=== PATIENT | male | born 2000 | race Caucasian/White ===

== ENCOUNTER 2021-10-07 19:17 | Emergency (ER) | payer OTHER ==
[2021-10-07] MEDS ORDERED: KETOROLAC 60 MG/2 ML VIAL IM STA (19:52)
[2021-10-07] MEDS ORDERED: HYDROmorphone 1 MG/ML CARPUJECT IM STA (19:52)
--- NOTE | 2021-10-07 19:54 | ED Physician Documentation ---
History of Present Illness - Stated complaint Stated Complaint: SHAKING/BACK INJ - Chief complaint Chief Complaint: Back Pain - Additonal information Additional information: 21-year-old male presents emergency department for evaluation of acute onset low back pain. He reports that he was working out and doing lifts of approximately 200 pounds when he felt a sharp sharp pain in his back. Since then he has had tenderness in the low back and some difficulty walking. No saddle anesthesia, no loss of bowel or bladder function. No history of injection drug use cancer or diabetes. He has not taken anything for pain. Denies any previous history of low back pain. Review of Systems Constitutional: denies: Fever, Chills Nose: reports: Reviewed and negative Cardiac: reports: Reviewed and negative Respiratory: reports: Reviewed and negative Skin: reports: Reviewed and negative Musculoskeletal: reports: Back pain. denies: Neck pain, Extremity pain Neurologic: reports: Reviewed and negative PD PAST MEDICAL HISTORY - Present Medications Home Medications: Ambulatory Orders Medication Instructions Recorded Confirmed Ibuprofen [Motrin] 600 mg PO Q6H PRN #30 tab 10/07/21 methocarbamoL [Methocarbamol] 750 mg PO BID PRN #15 tablet 10/07/21 - Allergies Allergies/Adverse Reactions: Allergies Allergy/AdvReac Type Severity Reaction Status Date / Time amoxicillin Allergy Hives Verified 10/07/21 20:13 PD ED PE NORMAL - General General: Alert and oriented X 3, No acute distress, Well developed/nourished - HEENT HEENT: Atraumatic, Moist mucous membranes - Cardiac Cardiac: RRR - Respiratory Respiratory: No respiratory distress, Clear bilaterally - Abdomen Abdomen: Normal bowel sounds, Soft, Non tender - Back Back: No CVA TTP, No spinal TTP, Other (Tenderness across the bilateral paraspinous muscles. Unable to elicit any tenderness of the lower lumbar spine. No crepitus or step-off) - Derm Derm: Normal color, Warm and dry, No rash - Extremities Extremities: No deformity - Neuro Neuro: Alert and oriented X 3 Eye Opening: Spontaneous Motor: Obeys Commands Verbal: Oriented GCS Score: 15 - Psych Psych: Normal mood Results - Vitals Vitals: Vital Signs - 24 hr 10/07/21 19:30 Temperature 37.0 C Heart Rate 86 Respiratory 20 Rate Blood Pressure 147/67 H O2 Saturation 100 Oxygen O2 Source Room air PD MEDICAL DECISION MAKING - ED course Complexity details: considered differential, d/w patient ED course: Well-appearing 21-year-old male who is otherwise healthy presents emergency department for evaluation of acute lower lumbar pain he felt a sharp pain in his low back when lifting approximately 200 pounds earlier this afternoon. He has no red flags on exam and a relatively reassuring exam overall. He was administered Dilaudid as well as Toradol here in the emergency department with marked Improvement in his pain. He is discharged with a prescription for ibuprofen as well as occasional methocarbamol. Advised to avoid heavy lifting until free of back pain likely 1 to 2 weeks. Follow-up with [facility]. Emergent return precautions discussed. Departure - Departure Disposition: Home, Self Care Clinical Impression: Acute lumbar myofascial strain Qualifiers: Encounter type: initial encounter Qualified Code(s): S39.012A - Strain of muscle, fascia and tendon of lower back, initial encounter Condition: Stable Record reviewed to determine appropriate education?: Yes Instructions: ED Sprain Strain Lumbar Prescriptions: methocarbamoL [Methocarbamol] 750 mg PO BID PRN #15 tablet PRN Reason: Spasms Ibuprofen [Motrin] 600 mg PO Q6H PRN #30 tab PRN Reason: Pain Comments: Adi you are seen today in the emergency department for pain in your low back that began after lifting approximately 200 pounds. I suspect that you have sprained or strained your lower lumbar muscles. This should improve with con servative treatment and time. I do recommend that you walk as often as possible but avoid heavy lifting pushing or pulling until free of back pain. Gentle stretching is okay but do not work to return turn to full range of motion until you are free of pain. Please take 600 mg of ibuprofen with food 2-3 times a day for the next 3 to 5 days. A muscle relaxer can also help especially with nighttime pain. You were given a one-time dose of Dilaudid here in the emergency department. Over the next week or so any subsequent drug testing could result positive for opiates. You are not being given a prescription for opiates on discharge. [place] the muscle relax[place]
[2021-10-07 21:06] VITALS: BP 137/55
== END 2021-10-07 21:03 | disposition home or self-care (01) ==
LOC: ED 19:17
DX: S39.012A Strain of muscle, fascia and tendon of lower back, initial encounter (principal); X50.0XXA Overexertion from strenuous movement or load, initial encounter; Y93.B9 Activity, other involving muscle strengthening exercises
CPT/HCPCS: 96374; 96375; 99283

== ENCOUNTER 2021-10-26 08:00 | Outpatient (CLI) | payer OTHER ==
--- NOTE | 2021-10-26 16:09 | XRAY Report ---
PROCEDURE: Lumbar Spine 2 View INDICATIONS: LUMBAR PX TECHNIQUE: 3 views of the lumbar spine were acquired. COMPARISON: None. FINDINGS: Bones: 5 [id number] vertebrae are present. There is normal bony alignment. No vertebral body compression fractures. No suspicious bony lesions. Soft tissues: Overlying bowel gas pattern is normal. No suspicious soft tissue calcifications. IMPRESSION: No radiographic abnormalities. Reviewed by: Treva Kaufman MD on 10/26/2021 4:07 PM PDT Approved by: Treva Kaufman MD on 10/26/2021 4:07 PM PDT Station ID: [id number]
== END 2021-10-26 23:59 | disposition home or self-care (01) ==
LOC: DI.N 08:00
PROVIDERS: ATTEND Physician Assistant Medical
DX: M54.50 Low back pain, unspecified (principal)

== ENCOUNTER 2022-03-05 08:00 | Outpatient (CLI) | payer OTHER ==
[2022-03-05 19:23] LABS: BASOPHILS % (AUTO) 0.5 %; EOSINOPHILS # (AUTO) 0.1 10^3/uL (0.0-0.7); EOSINOPHILS % (AUTO) 1.1 %; HCT - HEMATOCRIT 48.1 % (42.0-52.0); HGB - HEMOGLOBIN 16.1 g/dL (14.0-18.0); LYMPHOCYTES # (AUTO) 1.2 10^3/uL (1.5-3.5); LYMPHOCYTES % (AUTO) 14.4 %; MEAN CORPUSCULAR HGB CONC 33.5 g/dL (32.0-36.0); MEAN CORPUSCULAR VOLUME 89.6 fL (80.0-94.0); MEAN PLATELET VOLUME 11.5 fL (7.4-11.4); MONOCYTES # (AUTO) 0.5 10^3/uL (0.0-1.0); MONOCYTES % (AUTO) 6.2 %; NEUTROPHILS # (AUTO) 6.4 10^3/uL (1.5-6.6); NEUTROPHILS % (AUTO) 77.6 %; PLT - PLATELET COUNT 345 10^3/uL (130-450); RED BLOOD COUNT 5.37 10^6/uL (4.70-6.10); RED CELL DISTRIBUTION WIDTH 11.9 % (12.0-15.0); WHITE BLOOD COUNT 8.2 x10^3/uL (4.8-10.8)
[2022-03-05 19:48] LABS: ALBUMIN 4.9 g/dL (3.2-5.5); ALBUMIN/GLOBULIN RATIO 1.6 (1.0-2.2); BILIRUBIN,TOTAL 1.8 mg/dL (0.2-1.0); CALCIUM 9.9 mg/dL (8.5-10.3); CREATININE 0.9 mg/dL (0.6-1.2); POTASSIUM 4.5 mmol/L (3.5-5.0); TOTAL PROTEIN 7.9 g/dL (6.7-8.2)
== END 2022-03-05 23:59 | disposition home or self-care (01) ==
LOC: LAB.N 08:00
PROVIDERS: ATTEND Physician Assistant Medical
DX: K52.9 Noninfective gastroenteritis and colitis, unspecified (principal)
CPT/HCPCS: 36415; 80053; 83690; 85025

== ENCOUNTER 2022-03-17 07:57 | Emergency (ER) | payer OTHER ==
--- NOTE | 2022-03-17 08:26 | ED Physician Documentation ---
PD HPI ABD PAIN - Stated complaint Stated Complaint: ABD PX - Chief complaint Chief Complaint: Abd Pain - History obtained from History obtained from: Patient - Additional information Additional information: The patient comes to the emergency department chief complaint of abdominal pain. He states he has had epigastric and left upper quadrant pain that is been going on for about 4 weeks and has been seen in the walk-in clinic several times for this, but is still waiting to be seen by [facility]. The patient states that this morning, he woke up feeling very bad and had right lower quadrant pain. He states he has been nauseated on and off as well. He gets a sense of chills sometimes, but has not measured a fever. No dysuria or hematuria. He states his bowel consistency varies but he has not had consistent constipation or diarrhea. The patient states that he is not yet had a scope. He has been taking omeprazole and Zofran that he was prescribed by the walk-in clinic. He denies any personal or family history of ulcers. He denies regular alcohol intake and does not smoke. No NSAID use. No other complaints at this time. Review of Systems Ten Systems: 10 systems reviewed and negative Constitutional: reports: Chills Eyes: reports: Reviewed and negative Ears: reports: Reviewed and negative Nose: reports: Reviewed and negative Throat: reports: Reviewed and negative Cardiac: reports: Reviewed and negative Respiratory: reports: Reviewed and negative GI: reports: Abdominal Pain, Nausea. denies: Vomiting, Constipation, Diarrhea : reports: Reviewed and negative Skin: reports: Reviewed and negative Musculoskeletal: reports: Reviewed and negative Neurologic: reports: Reviewed and negative Psychiatric: reports: Reviewed and negative Endocrine: reports: Reviewed and negative Immunocompromised: reports: Reviewed and negative PD PAST MEDICAL HISTORY - Past Medical History Past Medical History: No Cardiovascular: None Respiratory: None Neuro: None Endocrine/Autoimmune: None GI: GERD : None HEENT: None Psych: None Musculoskeletal: None Derm: None - Past Surgical History Past Surgical History: Yes HEENT: Tonsil/Adenoidectomy - Present Medications Home Medications: Ambulatory Orders Medication Instructions Recorded Confirmed Ibuprofen [Motrin] 600 mg PO Q6H PRN #30 tab 10/07/21 methocarbamoL [Methocarbamol] 750 mg PO BID PRN #15 tablet 10/07/21 Omeprazole Magnesium 20 mg PO BID PRN 03/17/22 03/17/22 Ondansetron [Ondansetron Odt] 8 mg PO BID PRN 03/17/22 03/17/22 - Allergies Allergies/Adverse Reactions: Allergies Allergy/AdvReac Type Severity Reaction Status Date / Time amoxicillin Allergy Hives Verified 10/07/21 20:13 - Social History Does the pt smoke?: No Smoking Status: Former smoker Does the pt have substance abuse?: No - Immunizations Immunizations are current?: Yes - POLST Patient has POLST: No PD ED PE NORMAL - Vitals Vital signs reviewed: Yes - General General: Alert and oriented X 3, No acute distress, Well developed/nourished - HEENT HEENT: Atraumatic, PERRL, EOMI, Moist mucous membranes - Neck Neck: Supple, no meningeal sign - Cardiac Cardiac: RRR, No murmur, Strong equal pulses - Respiratory Respiratory: No respiratory distress, Clear bilaterally - Abdomen Abdomen: Soft, Non distended, Other (Mild right lower quadrant tenderness, no rebound or guarding. Moderate epigastric tenderness.) - Derm Derm: Warm and dry - Extremities Extremities: No deformity - Neuro Neuro: Alert and oriented X 3 - Psych Psych: Normal mood, Normal affect Results - Vitals Vitals: Vital Signs - 24 hr 03/17/22 03/17/22 08:34 10:29 Heart Rate 82 Respiratory 18 Rate Blood Pressure 161/92 H 160/81 H O2 Saturation 98 Oxygen O2 Source Room air - Labs Labs: Laboratory Tests 03/17/22 03/17/22 08:32 08:32 WBC 5.5 RBC 5.39 Hgb 15.7 Hct 47.6 MCV 88.3 MCH 29.1 MCHC 33.0 RDW 12.7 Plt Count 274 MPV 10.6 Neut # (Auto) 2.9 Lymph # (Auto) 1.8 Clarke # (Auto) 0.6 Eos # (Auto) 0.2 Baso # (Auto) 0.0 Absolute Nucleated RBC 0.00 Nucleated RBC % 0.0 Sodium 139 Potassium 3.8 Chloride 105 Carbon Dioxide 25 Anion Gap 9.0 BUN 10 Creatinine 0.9 Estimated GFR (MDRD) 108 Glucose 108 H Calcium 9.5 Total Bilirubin 1.4 H AST 20 ALT 27 Alkaline Phosphatase 56 Total Protein 7.5 Albumin 4.8 Globulin 2.7 Albumin/Globulin Ratio 1.8 Lipase 34 - Rads (name of study) CT scan of the abdomen and pelvis Radiology: Final report received, EMP read indepedently, See rad report (Negative) PD MEDICAL DECISION MAKING - ED course Complexity details: reviewed results, re-evaluated patient, considered differential, d/w patient ED course: Patient was worked up with labs and CT scan of the abdomen and pelvis. Work-up was negative. The patient was advised to follow-up as planned with his primary doctor tomorrow to discuss endoscopy. We have discussed the usual indications for return to the emergency department. Departure - Departure Disposition: Home, Self Care Clinical Impression: Abdominal pain Qualifiers: Abdominal location: right lower quadrant Qualified Code(s): R10.31 - Right lower quadrant pain Condition: Stable Instructions: ED Abdominal Pain Unkn Cause Male Comments: Your CT scan looks good. There is no evidence of appendicitis or any other more serious condition at this time. As we have discussed, CT scan is not good for picking out inflammation of the stomach lining or ulcers. As such, it is important that when you see your doctor tomorrow, you discuss the possibility of getting set up for an endoscopy to have a direct look at the inside of your esophagus and stomach to see if you are at risk for developing an ulcer. Please continue the medication that was prescribed to you at the clinic. Discharge Date/Time: 03/17/22 10:29
[2022-03-17] MEDS ORDERED: iohexoL-300 100 ML VIAL ONE (08:32)
[2022-03-17 08:34] LABS: BASOPHILS % (AUTO) 0.7 %; EOSINOPHILS # (AUTO) 0.2 10^3/uL (0.0-0.7); EOSINOPHILS % (AUTO) 3.1 %; HCT - HEMATOCRIT 47.6 % (42.0-52.0); HGB - HEMOGLOBIN 15.7 g/dL (14.0-18.0); LYMPHOCYTES # (AUTO) 1.8 10^3/uL (1.5-3.5); LYMPHOCYTES % (AUTO) 32.4 %; MEAN CORPUSCULAR HEMOGLOBIN 29.1 pg (27.0-31.0); MEAN CORPUSCULAR VOLUME 88.3 fL (80.0-94.0); MEAN PLATELET VOLUME 10.6 fL (7.4-11.4); MONOCYTES # (AUTO) 0.6 10^3/uL (0.0-1.0); NEUTROPHILS # (AUTO) 2.9 10^3/uL (1.5-6.6); NEUTROPHILS % (AUTO) 52.6 %; PLT - PLATELET COUNT 274 10^3/uL (130-450); RED BLOOD COUNT 5.39 10^6/uL (4.70-6.10); RED CELL DISTRIBUTION WIDTH 12.7 % (12.0-15.0); WHITE BLOOD COUNT 5.5 x10^3/uL (4.8-10.8)
[2022-03-17 08:54] LABS: ALBUMIN 4.8 g/dL (3.2-5.5); ALBUMIN/GLOBULIN RATIO 1.8 (1.0-2.2); BILIRUBIN,TOTAL 1.4 mg/dL (0.2-1.0); CALCIUM 9.5 mg/dL (8.5-10.3); CREATININE 0.9 mg/dL (0.6-1.2); POTASSIUM 3.8 mmol/L (3.5-5.0); TOTAL PROTEIN 7.5 g/dL (6.7-8.2)
--- NOTE | 2022-03-17 09:46 | CT Report ---
PROCEDURE: ABDOMEN/PELVIS W INDICATIONS: rlq pain today, epigastric pain x 4 wks CONTRAST: 100ml Omnipaque 300 TECHNIQUE: After the administration of intravenous contrast, 5 mm thick sections acquired from the diaphragms to the symphysis. 5 mm thick coronal and sagittal reformats were acquired. For radiation dose reducti on, the following was used: automated exposure control, adjustment of mA and/or kV according to serjio ent size. COMPARISON: None. FINDINGS: Image quality: Excellent. ABDOMEN: Lung bases: Lung bases are clear. Heart size is normal. Solid organs: Liver and spleen are normal in size and enhancement. Small hypodensity in the mid sple en. Likely a hemangioma or cyst. Gallbladder is unremarkable. Biliary system is non dilated. Pancre as enhances normally. No peripancreatic fluid collection. No adrenal nodules. Kidneys demonstrate n ormal size and enhancement, without hydronephrosis. Peritoneum and bowel: Bowel loops demonstrate normal wall thickness and caliber. The appendix is no t dilated. There is air within the appendiceal lumen. No periappendiceal fat stranding. No free fluid or air. Nodes and vessels: No retroperitoneal or mesenteric adenopathy by size criteria. Aorta and inferior vena cava are normal in size. Miscellaneous: No ventral hernias. PELVIS: Genitourinary: Bladder wall thickness is normal. No stones. Miscellaneous: No inguinal hernias or adenopathy. Bones: No suspicious bony lesions. No vertebral body compression fractures. IMPRESSION: No acute abnormality identified. No appendicitis demonstrated. No free fluid. Reviewed by: Peter Rizzo MD on 03/17/2022 9:45 AM PDT Approved by: Peter Rizzo MD on 03/17/2022 9:45 AM PDT Station ID: [id number]
[2022-03-17 10:30] VITALS: BP 160/81
[2022-03-17] MEDS ORDERED: iohexoL-300 100 ML VIAL IVP ONE (16:48)
== END 2022-03-17 10:29 | disposition home or self-care (01) ==
LOC: ED 07:57
DX: R10.31 Right lower quadrant pain (principal); Z87.891 Personal history of nicotine dependence
CPT/HCPCS: 36415; 74177; 80053; 83690; 85025; 99282; 99284; Q9967

== ENCOUNTER 2022-07-06 08:52 | Emergency (ER) | payer OTHER ==
[2022-07-06] MEDS ORDERED: LIDOCAINE 1%-EPI 1:100000 20 ML MDV SUBQ STA (09:02)
[2022-07-06] MEDS ORDERED: ACETAMINOPHEN 325 MG TABLET PO STA (10:02)
--- NOTE | 2022-07-06 10:04 | ED Physician Documentation ---
PD HPI UPPER EXT INJURY - Stated complaint Stated Complaint: LT HAND LAC - Chief complaint Chief Complaint: Laceration - History obtained from History obtained from: Patient - Additonal information Additional information: Patient is a 21-year-old male presenting for evaluation of laceration to his left palm. He was cutting an orange with a multitool this morning at work when he accidentally cut himself.He is active duty [employer] and his tetanus is up-to-date. He does not use that blood thinner. He denies injuries elsewhere. Review of Systems Constitutional: denies: Fever Cardiac: denies: Chest pain / pressure Respiratory: denies: Dyspnea GI: denies: Abdominal Pain Skin: reports: Laceration (s) PD PAST MEDICAL HISTORY - Past Medical History Cardiovascular: None Respiratory: None Neuro: None Endocrine/Autoimmune: None GI: GERD : None HEENT: None Psych: None Musculoskeletal: None Derm: None - Past Surgical History Past Surgical History: Yes HEENT: Tonsil/Adenoidectomy - Present Medications Home Medications: Ambulatory Orders Medication Instructions Recorded Confirmed Ibuprofen [Motrin] 600 mg PO Q6H PRN #30 tab 10/07/21 methocarbamoL [Methocarbamol] 750 mg PO BID PRN #15 tablet 10/07/21 Omeprazole Magnesium 20 mg PO BID PRN 03/17/22 03/17/22 Ondansetron [Ondansetron Odt] 8 mg PO BID PRN 03/17/22 03/17/22 - Allergies Allergies/Adverse Reactions: Allergies Allergy/AdvReac Type Severity Reaction Status Date / Time amoxicillin Allergy Hives Verified 07/06/22 09:09 - Social History Does the pt smoke?: No Smoking Status: Former smoker Does the pt have substance abuse?: No - Immunizations Immunizations are current?: Yes - POLST Patient has POLST: No PD ED PE NORMAL - General General: Alert and oriented X 3, No acute distress, Well developed/nourished - HEENT HEENT: Atraumatic - Cardiac Cardiac: Strong equal pulses - Respiratory Respiratory: No respiratory distress - Extremities Extremities: Normal ROM s pain, Other (1 cm laceration to left palm near thenar eminence) Results - Vitals Vitals: Vital Signs - 24 hr 07/06/22 07/06/22 09:02 10:13 Temperature 36.8 C 36.8 C Heart Rate 72 70 Respiratory 17 16 Rate Blood Pressure 146/76 H 130/70 O2 Saturation 100 100 Oxygen O2 Source Room air Procedures - Laceration (location) L Palm Length in cm: 1 Wound type: Linear, Clean Neurovascular status: Sensory intact, Motor intact, Vascular intact Tendon involvement: Tendon intact Anesthesia: Lidocaine 1% Wound preparation: Hibiclens, Irrigated copiously NS, Other (Also had pt soak wound in saline/hibiclens for 15 minutes) Skin layer closure: Size #-0 - enter number (4), Sutures - enter # (2) Other: Patient tolerated well, No complications, Neurovascular intact, Dressing applied, Tetanus UTD PD Medical Decision Making - ED course ED course: Patient presenting for evaluation of laceration to left palm. There is no signs of tendon injury Or neurovascular injury. I considered imaging but mechanism does not suggest foreign body. I did explore the wound and see no signs of a foreign body. Patient also soaked the wound And it was copiously irrigated prior to closure.Patient is aware of need to return for suture removal as well as wound care instructions. He is advised on concerning symptoms to return for. Departure - Departure Disposition: 01 Home, Self Care Clinical Impression: Laceration of left palm Condition: Stable Instructions: ED Laceration Hand Follow-Up: [facility] Winstonkelley Keating [Provider Group] Comments: You have a small laceration to your left palm that was closed with 2 stitches. Please keep the dressing on for the next 24 hours after that you can remove it. Please keep the wound clean and dry. The stitches should be removed in approximately 10 days. [facility] can [facility] or to the emergency department to have the stitches removed.In the meanwhile you should take caution at work when using your left hand.If you notice any worsening symptoms such as redness or abnormal drainage from the wound then please return to the emergency department for evaluation. SUTURES TO BE REMOVED in 10 DAYS on 07/16/22 Forms: Activity restrictions Discharge Date/Time: 07/06/22 10:13
[2022-07-06 10:16] VITALS: BP 130/70
== END 2022-07-06 10:13 | disposition home or self-care (01) ==
LOC: ED 08:52
DX: S61.412A Laceration without foreign body of left hand, initial encounter (principal); W26.0XXA Contact with knife, initial encounter; Y99.1 Military activity; Z87.891 Personal history of nicotine dependence
CPT/HCPCS: 12001; 99282; A9270

== ENCOUNTER 2022-08-30 18:06 | Emergency (ER) | payer OTHER ==
[2022-08-30 18:18] VITALS: BP 151/91
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
== END 2022-08-30 20:28 | disposition home or self-care (01) ==
LOC: ED 18:06
DX: S09.90XA Unspecified injury of head, initial encounter (principal); V89.2XXA Person injured in unspecified motor-vehicle accident, traffic, initial encounter; Z87.891 Personal history of nicotine dependence
CPT/HCPCS: 99281; 99283